=== PATIENT | female | born 1985 | race Caucasian/White ===

== ENCOUNTER 2025-03-02 09:22 | Outpatient (CLI) | payer OTHER, SELFPAY ==
--- NOTE | ~2025-03-02 | MM_ITS ---
EXAMINATION: MM screening manuela BI w bea HISTORY: Screening TECHNIQUE: Craniocaudal and mediolateral oblique 3-D tomosynthesis images were obtained and synthetic 2-D images were generated. CAD analysis was submitted and interpreted. COMPARISON: No prior mammogram is available for comparison at this institution. BREAST PARENCHYMAL COMPOSITION: Dense: The breasts are heterogeneously dense, which may obscure small masses FINDINGS: There are asymmetries in the central aspect of the right breast, middle third. There are be nign bilateral breast calcifications. No evidence for malignancy in the left breast. IMPRESSION: 1. Right breast asymmetries. 2. Recommend routine screening mammography in one year. Reviewed, dictated and finalized at location B.
--- OUTSIDE RECORDS SUMMARY | 2025-03-02 09:32 | XMS_ITS | Clinical Summary ---
Author Organization [facility] Health Address [address] [place] [address] Care Team Providers Care Aromatherapist Name Role Phone Unavailable Primary Care Provider Unavailabl e Social History Tobacco Use Types Packs/Day Years Used Date Smoking Tobacco: Never Assessed Comments Unknown Sex and Gender Information Value Date Recorded Sex Assigned at Not on file Legal Sex Female 1:11 AM PST Gender Identity Not on file Sexual Orientation Not on file Plan of Treatment Not on file
--- OUTSIDE RECORDS SUMMARY | 2025-03-02 09:32 | XMS_ITS | Clinical Summary ---
Author Organization [facility] [employer] Address [address] [place] [address] Care Team Providers Care Wet Process Miller Head Name Role Phone Callie Luke Primary Care Provider Source Comments [facility] [employer],non-owned Affiliates and Associated Physician Practices is amultiple site organization consisting of ambulatory clinics and hospital sitesin [place], [place], [place] and [place]. This disclosure is being madepursuant to the Care Everywhere program and may not contain all information available regarding this patient. Last updated 18.[facility] [employer] Allergies Active Allergy Reactions Criticality Noted Date Comments Sulfa Drugs Urticaria Medium 03/19/2018 Medications * This document contains information received from the source organization and may not represent a complete record from that organization. * Be aware that medications may not be up to date on this document. Alwaysverify current medications with the patient. cetirizine (ZyrTEC) 10 MG tablet Take 1 (one) tablet by mouth once daily 03/29/2023 Active fluticasone propionate (Flonase) 50 MCG/ACT nasal spray SPRAY ONE SPRAY IN EACH NOSTRIL 30 MINUTES BEFORE BED 03/29/2023 Active valACYclovir (Valtrex) 500 MG tabletIndicatio ns:Vulvar fissure Take 2 (two) tablets by mouth once daily 30 tablet 3 01/22/2024 Active Active Problems Problem Noted Date Diagnosed Date Suicidal thoughts 07/18/2022 TOS (thoracic outlet syndrome) 10/18/2019 Pectoralis minor syndrome 05/13/2019 Overview (03/20/2021): Added automatically from request for surgery [id number] Neurogenic thoracic outlet syndrome 05/13/2019 Overview (03/20/2021): Added automatically from request for surgery [id number] ROHAN (generalized anxiety disorder) 12/16/2018 Paresthesia 07/29/2018 Attention deficit hyperactiv ity disorder (ADHD), predominantly inattentive type Resolved Problems Problem Noted Date Diagnosed Date Resolved Date Pain in joint of right shoulder 11/16/2018 07/25/2022 Multiple sclerosis 07/29/2018 Acute maxillary sinusitis, unspecified 11/29/2015 07/25/2022 Carpal tunnel syndrome 12/13/201001/21 Immunizations Immunization Administration Dates Next Due Covid Moderna primary monovalent 12+ yr 0.5mL ,11/23/2020 FLU VACCINE TRI IIV3 SPLIT PF IM (FLUVIRIN) 05/19 INFLUENZA VACCINE, QUADR. (F LUZONE; FLULAVAL; FLUARIX; AFLURIA QUADRIVALENT; 6MO+), 0.5 ML (IIV4) 05/29/2018 MMR 01/30/2017 PNEUMOCOCCAL PPSV23 05/29/2018 TDAP (7yrs+) 07/24/2016 Family History Medical History Relation Name Comments CAD (Coronary Artery Disease) Father Seizures Maternal Grandfather Cancer - Colon Maternal Grandmother Hypertension Mother None Known Paternal Grandfather None Known Paternal Grandmother Relation Name Status Comments Father Alive Maternal Grandfather Maternal Grandmother Mother Alive Paternal Grandfather Paternal Grandmother Social History Tobacco Use Types Packs/Day Years Used Date Smoking Tobacco: Every Day Cigarettes 0.5 21 Smokeless Tobacco: Never Tobacco Cessation:Ready to Q uit: Not Asked; Counseling Given: Not Answered Comments:Vapes during day Alcohol Use Standard Drinks/Week Comments Not Currently 0 (1 standard drink = 0.6 oz pur e alcohol) socially PHQ-2 Answer Date Recorded Patient Health Questionnaire-2 Score 0 01/15/2024 Comments No Sex and Gender Information Value Date Recorded Sex Assigned at Female 11/23/2020 9:50 AM CDT Legal Sex Female 2:43 PM TIMBER MANAGEMENT ASSISTANT Gender Identity Female 11/23/2020 9:50 AM CDT Sexual Orientation Bisexual 09/25/2023 10 :19 AM TIMBER MANAGEMENT ASSISTANT Last Filed Vital Signs Vital Sign Reading Time Taken Comments Blood Pressure 118/80 01/22/2024 10:23 AM CDT Pulse 88 11/13/2022 8:53 AM CDT Temperature 37 C (98.6 F) 11/13/2022 8:53 AM CDT Respiratory Rate 16 07/23/2022 8:42 AM TIMBER MANAGEMENT ASSISTANT Oxygen Saturation 99% 11/13/2022 8:53 AM CDT Inhaled Oxygen Concentration - - Weight 50.3 kg (111 lb) 01/22/2024 10:23 AM CDT Height 165.1 cm (5' 5) 01/22/2024 10:23 AM CDT Body Mass Index 18.47 01/22/2024 10:23 AM CDT Plan of Treatment Health Maintenance Due Date Last Done Comments LIPID TESTING 1985 MAMMOGRAM 1985 HEPATITIS C SCREENING 01/16/2003 HEPATITIS B VACCINE (1 of 3 - 19+ 3-dose series) 01/21/2004 HPV VACCINE (1 - 3-dose SCDM series) 01/21/2012 PNEUMOCOCCAL VACCINE (2 of 2 - PCV) 05/29/2019 05/29/2018 PAP SMEAR 04/18/2023 04/18/2020 (Done Outside Per Patient), 10/30/2016 (Done Outside Per Patient) COVID-19 VACCINE (3 - 2023-2 5 season) 2024 12/20/2020, 11/23/2020 DEPRESSION SCREENING 08/18/2024 01/22/2024, 11/13/2022, 07/23/2022 INFLUENZA VACCINE (#1) 2025 05/29/2018, 2015 DTAP/TDAP/TD VACCINES (2 - T d or Tdap) 07/24/2026 07/24/2016 ZOSTER VACCINE (1 of 2) 2035 HIV SCREENING Completed 07/25/2021, 07/29/2018 HIB VACCINE Aged Out No longer eligi ble based on patient's age to complete this topic MENINGOCOCCAL (Group B) VACCINE SHARED DECISION-MAKING Aged Out No longer eligible based on patient's age to complete this topic MENINGOCOCCAL GROUPS A/C/Y/W VACCINE Aged Out No longer eligible based on patient's age to complete this topic Procedures Procedure Name Priority Date/Time Associated Diagnosis Comments HIV-1 HIV-2 ANTIBODY + HIV P24 AG PANEL Routine 07/25/2021 9:34 AM TIMBER MANAGEMENT ASSISTANT STD exposure from Last 3 Months or Most Recently Relevant to Health Maintenance Results * HIV 1 & HIV 2 ANTIBODY (IN HOUSE) (07/25/2021 9:34 AM TIMBER MANAGEMENT ASSISTANT) HIV1/2 Ab + P24 Ag NON-REACTI VE/NEGATIV E NON-REACTI VE/NEGATIV E 07/25/2021 2:52 PM TIMBER MANAGEMENT ASSISTANT [facility] Blood BLOOD SPECIMEN / Unknown Venipuncture / Unknown 07/25/2021 9:34 AM TIMBER MANAGEMENT ASSISTANT 07/25/2021 9:34 AM TIMBER MANAGEMENT ASSISTANT Callie Luke APRN-KNIFE SHARPENER LAB - CHEMISTRY ORDERAB LES Final Result Performing Organization Address City/State/[facility] [place] Co de Phone Number [facility] [address] from Last 3 Months or Most Recently Relevant to Health Maintenance Insurance CARE Advance Directives * Full Code (Latest Code Status on File) Date Activated Date Inactivated Comments 07/29/2018 4:41 PM 07/31/2018 11:30 AM Care Teams Wet Process Miller Head Relationship Specialty Start Date End Date Callie Luke APRN-CNP PCP - General Nurse Practitioner 07/29/18
--- OUTSIDE RECORDS SUMMARY | 2025-03-02 09:32 | XMS_ITS | Encounter Summary ---
Author Organization [facility] Health Address [address] [place] [address] Care Team Providers Care Tank Systems Maintainer Name Role Phone Unavailable Primary Care Provider Unavailabl e Prior Encounters Date Type Department Care Team Description 09/06/2019 Converted CPS Chart Documents [address] [id number] <No scans attached> 09/06/2019 Converted 13x Documents [facility] [address] [place] [phone] <No scans attached> Plan of Treatment Not on file Procedures Procedure Name Priority Date/Time Associated Diagnosis Comments CANCELLED APPOINTMENT Routine 04/05/2015 2:00 AM CDT PERIODIC ORAL EVALUATION - ESTABLISHED PATIENT Routine 10/06/2014 2:00 AM OUTSIDE PLANT SUPERVISOR ORAL HYGIENE INSTRUCTIONS Routine 2014 2:00 AM OUTSIDE PLANT SUPERVISOR TOPICAL APPLICATION OF FLUORIDE VARNISH Routine 10/06/2014 2:00 AM OUTSIDE PLANT SUPERVISOR PROPHYLAXIS - ADULT Routine 10/06/2014 2 :00 AM OUTSIDE PLANT SUPERVISOR 18 SEALANT 2ND MOLAR Routine 03/18/2014 2:00 AM CDT 15 SEALANT 2ND MOLAR Routine 03/18/2014 2:00 AM CDT 30 SEALANT 1ST MOLAR Routine 03/18/2014 2:00 AM CDT 19 SEALANT 1ST MOLAR Routine 03/18/2014 2:00 AM CDT 14 SEALANT 1ST MOLAR Routine 03/18/2014 2:00 AM CDT 3 SEALANT 1ST MOLAR Routine 03/18/2014 2 :00 AM CDT COMPREHENSIVE ORAL EVALUATION - NEW OR ESTABLISHED PATIENT Routine 03/18/2014 2:00 AM CDT ORAL HYGIENE INSTRUCTIONS Routine 2013 2:00 AM CDT TOPICAL APPLICATION OF FLUORIDE VARNISH Routine 03/18/2014 2:00 AM CDT PROPHYLAXIS - ADULT Routine 03/18/2014 2 :00 AM CDT PANORAMIC RADIOGRAPHIC IMAGE Routine 03/18/2014 2:00 AM CDT INTRAORAL - COMPREHENSIVE SERIES OF RADIOGRAPHIC IMAGES Routine 03/18/2014 2:00 AM CDT INTRAORAL PHOTO Routine 03/18/2014 2:00 AM CDT INTRAORAL PHOTO Routine 03/18/2014 2:00 AM CDT INTRAORAL PHOTO Routine 03/18/2014 2:00 AM CDT INTRAORAL PHOTO Routine 03/18/2014 2:00 AM CDT Visit Diagnoses Not on file
--- OUTSIDE RECORDS SUMMARY | 2025-03-02 09:33 | XMS_ITS | Continuity of Care Document ---
Author Name [facility] Organization DOD-ID Care Team Providers Care Business Intelligence Reporting Analyst Name Role Phone DOD-VA Unavailable Unavailable Problems Combined list of problems from Department of Defense and Veterans Affairs facilities. It does not include entries that were removed or entered in error. Problem Status Onset Date Problem Type Date of Resolution Comme nts Source Acute maxillary sinusitis, unspecified Active 11/29/2015 Condition DoD Other specified counseling Active Condition DoD Encounter for immunization Active Condition DoD Allergies, Adverse Reactions, Alerts Combined list of allergies from Department of Defense and Veterans [facility] facilities. It does not include entries that were removed or entered in error. Substance Category Reaction Severity Reaction type Status Date Reported Comments Source SULFA (SULFONAMIDE ANTIBIOTICS) {Cla } Drug allergy (disorder) Rash active 05/30/2015 [facility] [place] Immunizations Combined list of available immunizations from the Department of Defense and Veterans [facility] facilities. Immunization Series Date Given Administered By Site Reaction Lot Number CVX Code Drug Brattice Builder Status Comments Source measles, mumps and rubella virus vaccine 1 2016 YONIS ROSADO [id number] Merck (MSD) complet ed measles, mumps and rubella virus vaccine DoD tetanus toxoid, reduced diphtheria toxoid, and acellular pertu is vaccine, adsorbed 1 2015 JYOTI BOLANOS [id number] SmithKline (SKB) complet ed tetanus toxoid, reduced diphtheri a toxoid, and acellular pertussis vaccine, adsorbed DoD Influenza, seasonal, injectable, preservative free 0 2015 SHONA TOTH [id number] CSL [employer] (CSL) complet ed Influenza , seasonal, injectabl e, preservat néstor free DoD Encounters Combined list of: 1) Encounters from Department of Veterans Affairs facilities going backup to the last 18 months, not all VA inpatient encounters are included; 2) Encounters from the Department of Defense facilities going backup to 280 months. Location Location Details Encounter Type Encounter Number Reason For Visit Attending Provider ADM Date DC Date Status Disposition Source [address] [place] [address] Anderson DAVIS ([facility] [facility] [place] OUTPATIENT [id number] New pt appt, Medicat ions DANELLE HARRISON 05/26 Released w/o Limitations [address] [place] [address] Anderson [facility]RETE[facility] [place]S cott [facility] [place] [address] [place] [address] Anderson [facility] [place]co [place] [facility] [place] OUTPATIENT [id number] efren otooler unny nose [phone] MARISELA PAYNE 07/19 Released w/o Limitations [address] [place] [address] Anderson [facility] [place]S cott [facility] [place] [address] [place] [address] Anderson [facility] [place]co [place] [facility] [place] TELE CONSULT [id number] Notes Entered by: HANS MAURER 25 Sep 2015 1151 ------- ------- ------- ------- -- PFT'S - [place] - EARLENE OWENS 09/[address] [place] [address] Anderson DAVIS [facility] [place] [facility] [place]) [address] [place] [address] Anderson DAVIS [facility] [place]Sco tt [facility] [place] OUTPATIENT [id number] Pulmona ry Functio n Test GIBSON ALVARADO 10/05 Released w/o Limitations [address] [place] [address] Anderson [facility] [place]S cott [facility] [place]) [address] [place] [address] Anderson [facility] [place]co tt [facility] [place] OUTPATIENT [id number] F/U PFT and asthma medicat ion renewal - [id number] HAMMAD MADDOX LT 11/22 Released w/o Limitations [address] [place] [address] Anderson [facility] [place]S cott [facility] [place]am [place]) [address] [place] [address] Anderson [facility] [place]Sco tt [facility] [place]) TELE CONSULT [id number] Notes Entered by: Jenise MCGUIRE 29 Nov 2015 1422 ------- ------- ------- ------- -- Request s alessandro nt medicat ion/Nehal lton/[phone] HAMMAD MADDOX LT 11/[address] [place] [address])(S [facility] Fam Res [place]) [address] [place] [address])(Sco tt [facility] [place]) OUTPATIENT [id number] Notes Entered by: ALFONSO WRIGHT 05 Feb 2016 1331 ------- ------- ------- ------- -- walk-in ian cy JOSIAH Blunt 02/04 Released w/o Limitations [address] [place] [address])(S [facility] Fam Res [place]m [place]) [address] [place] [address])(Sdo formerly [facility] Fam Res Tm Red) OUTPATIENT [id number] Notes Entered by: RONEN GIBBONS 04 Mar 2016 1051 ------- ------- ------- ------- -- w/i initial OB for VELIA Ruvalcaba 03/04 Released w/o Limitations [address] [place] [address])(S [facility] Fam Res Tm Red) [facility] F_Non-AD) TELE CONSULT [id number] Notes Entered by: JERAMY STEARNS 09 Apr 2016 0939 ------- ------- ------- ------- -- CC/ OB referra l request ed/ CB# .. .MARINA Danielle 04/09 [facility]( Family Med Cl Team F_Non-A D) [facility](Ob /Rim Fire Priming Tool Setter Cl MG) OUTPATIENT [id number] NOB LMP:25 DEC 2015 TAMMY WHITLOCK 04/23 Released w/o Limitations [facility]( Reprographics Technician Cl MG) [facility](Ob /Rim Fire Priming Tool Setter Cl MG) TELE CONSULT [id number] TAMMY IRIZARRY 05/14 [facility]( Reprographics Technician Cl MG) [facility](Ob /Rim Fire Priming Tool Setter Cl MG) TELE CONSULT [id number] TAMMY IRIZARRY 05/30 [facility]( Reprographics Technician Cl MG) [facility](AM H F01S [place] (Fam Prac Silv FB)) OUTPATIENT [id number] ARTURO Love 06/07 Released w/o Limitations [facility]( AMH F01S [place] (Fam Prac Silv FB)) [facility](Co mm Health FB) OUTPATIENT [id number] Notes Entered by: YASMANY MANE 12 Jun 2016 1047 ------- ------- ------- ------- -- FLU SHOT SHONA MURRAY 06/12 Released w/o Limitations [facility]( Comm Health FB) [facility](AM H F01S [place] (Fam Prac Silv FB)) TELE CONSULT [id number] Notes Entered by: LI ALBERTS 16 Jun 2016 0323 ------- ------- ------- ------- -- Results /anatom y scan LA ALBERTS 06/16 Referred for Appointment [facility]( AMH F01S [place] (Fam Prac Silv FB)) [facility](Ph ys Therapy FB) OUTPATIENT [id number] both feet JAMES LUNA 06/20 Released w/o Limitations [facility]( Phys Therapy FB) [facility](Ph ys Therapy FB) OUTPATIENT [id number] SLAVA RUFF 06/21 Released w/o Limitations [facility]( Phys Therapy FB) [facility](Or thotics Clinic FB) OUTPATIENT [id number] brace shop splint BRAYAN MADSEN 06/21 Released w/o Limitations [facility]( Orthoti cs Clinic FB) [facility](Ph ys Therapy FB) OUTPATIENT [id number] CLIF QUIÑONES JR 06/27 Released w/o Limitations [facility]( Phys Therapy FB) [facility] Med BE) OUTPATIENT [id number] 25wk f/u echogen ic focus ARTHUR CALI 07/02 Released w/o Limitations [facility]( Materna l Med BE) [facility](Ph ys Therapy FB) OUTPATIENT [id number] DINHJUDIE SHELBYN 07/05 Released w/o Limitations [facility]( Phys Therapy FB) [facility](Ph ys Therapy FB) OUTPATIENT [id number] SLAVA RUFF 07/10 Released w/o Limitations [facility]( Phys Therapy FB) [facility](AM H F01S [place] (Fam Prac Silv FB)) OUTPATIENT [id number] 28wk SHERLY ARECHIGA 07/18 Released w/o Limitations [facility]( AMH F01S [place] (Fam Prac Silv FB)) [facility](Or thotics Clinic FB) OUTPATIENT [id number] night splint dorsal x1 BRAYAN MADSEN 07/19 Released w/o Limitations [facility]( Orthoti cs Clinic FB) [facility](Ph ys Therapy FB) OUTPATIENT [id number] JAMES LUNA 07/19 Released w/o Limitations [facility]( Phys Therapy FB) [facility](Al lergy Cl FB) OUTPATIENT [id number] Notes Entered by: LINDA MILLAN 24 Jul 2016 0957 ------- ------- ------- ------- -- JYOTI Aguilar 07/24 Released w/o Limitations [facility]( Allergy Cl FB) [facility](Ph ys Therapy FB) OUTPATIENT [id number] VELIA Jean 08/02 Released w/o Limitations [facility]( Phys Therapy FB) [facility](AM H F01S [place] (Fam Prac Silv FB)) OUTPATIENT [id number] 32 wk JOEL SANCHEZ 08/06 Released w/o Limitations [facility]( AMH F01S [place] (Fam Prac Silv FB)) [facility](Ph ys Therapy FB) OUTPATIENT [id number] JAMES LUNA 08/26 Released w/o Limitations [facility]( Phys Therapy FB) [facility](AM H F01S [place] (Fam Prac Silv FB)) OUTPATIENT [id number] 36wk LA DILLON S 09/03 Released w/o Limitations [facility]( AMH F01S [place] (Fam Prac Silv FB)) [facility](Ob stetric Cl FB) OUTPATIENT [id number] 36 wk class MARGARET CATES 09/11 Released w/o Limitations [facility]( Obstetr ic Cl FB) [facility](AM H F01S [place] (Fam Prac Silv FB)) OUTPATIENT [id number] LA DILLON 09/17 Released w/o Limitations [facility]( AMH F01S [place] (Fam Prac Silv FB)) [facility](AM H F01S [place] (Fam Prac Silv FB)) OUTPATIENT [id number] 39wk LA DILLON S 09/24 Released w/o Limitations [facility]( AMH F01S [place] (Fam Prac Silv FB)) [facility](Fa m Practice FB) OUTPATIENT [id number] Notes Entered by: DENITA BOWIE 25 Sep 2016 1305 ------- ------- ------- ------- -- BP check ROCHELLE WILLS 09/25 Released w/o Limitations [facility]( Fam Practic e FB) [facility] DIRECT TO [facility] FROM OTHER THAN ER OR [facility] [id number] MILLIE WEBSTER TITI 09/28 DISCHARGED HOME [facility](Pr enatal Obs FB) TELE CONSULT [id number] Notes Entered by: SKY PRYOR 28 Sep 2016 191 ------- ------- ------- ------- -- labor GRAZYNA PRYOR 09/29 [facility]( Prenata l Obs FB) [facility](Fa m Prac Extended Care Cl FB) OUTPATIENT [id number] IUD inserti on w/Pap STORM GAMBINO 12/23 Released w/o Limitations [facility]( Fam Prac Extende d Care Cl FB) [facility](AM H F01G [place] (Fam Pra Green FB)) TELE CONSULT [id number] Notes Entered by: OSCAR GLASER 23 Jan 2017 1548 ------- ------- ------- ------- -- PAP results OSCAR GLASER 01/23 Referred for Appointment [facility]( AMH F01G [place] (Fam Pra Green FB)) [facility](Al lergy Cl FB) OUTPATIENT [id number] mmr YONIS PATTEN 01/30 Released w/o Limitations [facility]( Allergy Cl FB) [facility](AM H F01S [place] (Fam Prac Silv FB)) TELE CONSULT [id number] Notes Entered by: LI ALBERTS 24 Mar 2017 1748 ------- ------- ------- ------- -- Refill asthma meds LA ALBERTS 03/24 Referred for Appointment [facility]( AMH F01S [place] (Fam Prac Silv FB)) [facility](AM H F01S [place] (Fam Prac Silv FB)) TELE CONSULT [id number] Notes Entered by: LI ALBERTS 05 Jun 2017 1254 ------- ------- ------- ------- -- Switch SSRI LA ALBERTS 06/05 Referred for Appointment [facility]( AMH F01S [place] (Fam Prac Silv FB)) [facility](AM H F01S [place] (Fam Prac Silv FB)) OUTPATIENT [id number] medicat ion LA ALBERTS 07/08 Released w/o Limitations [facility]( AMH F01S [place] (Fam Prac Silv FB)) [facility](AM H F01S [place] (Fam Prac Silv FB)) TELE CONSULT [id number] LA ALBERTS 10/07 Released to Self Care [facility]( AMH F01S [place] (Fam Prac Silv FB)) [facility](AM H F01S [place] (Fam Prac Silv FB)) OUTPATIENT [id number] Sinus SHAHLA Hansen 11/21 Released w/o Limitations [facility]( AMH F01S [place] (Fam Prac Silv FB)) Procedures Combined list of: 1) Procedures from Department of Veterans Affairs facilities going back up to thelast 18 months, not all VA non-surgical procedures are included; 2) All procedures from the Department of Defense facilities. Procedure Procedure Type Code Date Perfomer Comments Sourc e Vaccines Viral Measles, Mumps and Rubella, Live Vaccines Viral Measles, Mumps and Rubella, Live 92681 7 YONIS ROSADO MMR; Series #: 1; .5 mL; SC; Left Arm; Mfg: Merck; Lot: [id number]; VIS given (Monisha: 12/06/11). DoD Immunization Administration One Vaccine Immunization Administration One Vaccine 58012 7 YONIS ROSADO [facility] Non-Physician Phone Call To Patient/Provider Brief (5-10min) Non-Physician Phone Call To Patient/Provider Brief (5-10min) 49973 7 OSCAR GLASER [facility] Gynecologic Services Intrauterine Device (IUD) Insertion Gynecologic Services Intrauterine Device (IUD) Insertion 14713 7 STORM GAMBINO [facility] Cervical Pap Smear Cervical Pap Smear 17006 7 STORM GAMBINO [facility] Physical Medicine Physical Therapy Re-Evaluation Physical Medicine Physical Therapy Re-Evaluation 68934 7 JAMES LUNA [facility] OB Services Antepartum Care Only Subsequent Single Visit OB Services Antepartum Care Only Subsequent Single Visit 0502F 6 JOEL WANG [facility] Physical Therapy: ___ Se ion Segments, 15 Minutes Each Physical Therapy: ___ Session Segments, 15 Minutes Each 86066 6 VELIA DANIEL [facility] Osteopathic Manip Treatment (OMT) 1-2 Body Regions Involved Osteopathic Manip Treatment (OMT) 1-2 Body Regions Involved 50155 6 VELIA DANIEL [facility] Physical Medicine Physical Therapy Re-Evaluation Physical Medicine Physical Therapy Re-Evaluation 92589 6 VELIA DANIEL [facility] Tdap Vaccine Tdap Vaccine 58627 6 JYOTI BOLANOS Tdap; Series #: 1; .5 mL; IM; Right Arm; Mfg: [employer]; Lot: [id number]; VIS given (Monisha: 10/11/14). DoD Immunization Administration One Vaccine Immunization Administration One Vaccine 46458 6 JYOTI BOLANOS [facility] Physical Medicine Physical Therapy Re-Evaluation Physical Medicine Physical Therapy Re-Evaluation 89577 6 JAMES LUNA [facility] Static or dynamic ankle foot orthosis, including soft interface material, adjustable for fit, for positioning, may be used for minimal ambulation, prefabricated item that has been trimmed, bent, molded, a embled, or otherwise customized to fit a specific patient by an individual with expertise 6 BRAYAN MADSEN [facility] Physical Therapy Education Orthotics Training Initial 15 Min 6 BRAYAN MADSEN [facility] Mobilization Soft Ti ue Mobilization Soft Tissue 48302 6 SLAVA RUFF 30 min [facility] Mobilization Soft Ti ue Mobilization Soft Tissue 16044 6 BUD TAO 10 min [facility] Transabd Ultrasound W/ Exam Single Or First Gestation Transabd Ultrasound W/ Exam Single Or First Gestation 25635 6 ARTHUR CALI [facility] Physical Therapy: ___ Se ion Segments, 15 Minutes Each Physical Therapy: ___ Session Segments, 15 Minutes Each 36804 6 CLIF QUIÑONES JR 15 min DoD Mobilization Soft Ti ue Mobilization Soft Tissue 13339 6 CLIF QUIÑONES JR 10 min DoD Mobilization Soft Ti ue Mobilization Soft Tissue 51147 6 SLAVA RUFF 20 MIN [facility] Physical Medicine - Group Physical Therapy Se ion Physical Medicine - Group Physical Therapy Session 41319 6 SLAVA RUFF GROUP OF 2 [facility] Physical Therapy: ___ Se ion Segments, 15 Minutes Each Physical Therapy: ___ Session Segments, 15 Minutes Each 41854 6 SLAVA RUFF 20 MIN [facility] Foot, plastic, silicone or equal, heel stabilizer, prefabricated, gvn-[id number]-yknvm, each 6 BRAYAN MADSEN [facility] Physical Therapy Education Orthotics Training Initial 15 Min 6 BRAYAN MADSEN [facility] Osteopathic Manip Treatment (OMT) 1-2 Body Regions Involved Osteopathic Manip Treatment (OMT) 1-2 Body Regions Involved 76157 6 JAMES LUNA [facility] Physical Medicine Physical Therapy Evaluation Physical Medicine Physical Therapy Evaluation 62405 6 JAMES LUNA [facility] Influenza Split Virus Vacc Age 3+ Years IM Preservative Free 6 MILLIE MANE [facility] Immunization Administration One Vaccine Immunization Administration One Vaccine 40799 6 MILLIE MANE [facility] OB Services Antepartum Care Only First Visit, With Report OB Services Antepartum Care Only First Visit, With Report 0500F 6 CASSIE THOMAS [facility] OB Services Antepartum Care Only First Visit, With Report OB Services Antepartum Care Only First Visit, With Report 0500F 6 VELIA QUACH [facility] Social History Combined list of available smoking, tobacco, and other social history from Department of Defense and Veterans Affairs facilities. Social History Type Response Date Comment Sour e This section is an empty social history section. DoD
--- OUTSIDE RECORDS SUMMARY | 2025-03-02 09:33 | XMS_ITS | Referral Summary ---
Author Organization [facility] Address [address] [place] [address] Care Team Providers Care Line Haul Truck Driver Name Role Phone Elpidio Mccall DPT Unavailable [phone] Terrance Lomeli MD Primary Care Provider [phone] Yoanna Reed PhD Unavailable [phone] Allergies Active Allergy Reactions Criticality Noted Date Comments Sulfa (Sulfonamide Antibiotics) Hives,Other (See comments),Urticaria Medium 02/13/2016 Hives Medications albuterol HFA (PROVENTIL HFA,VENTOLIN HFA,PROAIR HFA) 90 mcg/actuation inhalerIndications :Bronchospasm Prevention Inhale 2 puffs every 6 hours as needed for shortness of breath 8 Active drospirenone-ethin yl estradiol (VIK,GIANVI) 3-0.02 mg per tabletIndications: Contraception Take 1 tablet by mouth every morning 9 Active cannabidiol, CBD, (EPIDIOLEX) 100 mg/mL solutionIndication s:Neuropathic Pain as needed CBD oil topically as needed for pain Active Active Problems Problem Noted Date Diagnosed Date Attention deficit hyperactiv ity disorder (ADHD), predominantly inattentive type 03/18/2023 TOS (thoracic outlet syndrome) 05/13/2019 Overview (03/18/2023): Added automatically from request for surgery [id number] Pectoralis minor syndrome 05/13/2019 Overview (05/13/2019): Added automatically from request for surgery [id number] ROHAN (generalized anxiety disorder) 12/16/2018 Paresthesia 07/29/2018 Carpal tunnel syndrome 12/13/2010 Immunizations Immunization Administration Dates Next Due Influenza, Quadrivalent, Spl it, Preservative Free, Intramuscular 06/16/2019(Deferred: Patient Refused - patient no longer wants the flu shot during this admission),05/29/2018 Influenza, Trivalent, Preser vative Free, Intramuscular 06/12/2016 MMR 01/30/2017 Pneumococcal Polysaccharide PPV23 05/29/2018 Tdap 07/24/2016 Social History Tobacco Use Types Packs/Day Years Used Date Smoking Tobacco: Every Day Cigarettes 0.5 17.9 Started: 2000; Last attempted to quit: 07/2018 Smokeless Tobacco: Former Tobacco Cessation:Ready to Q uit: Not Asked; Counseling Given: Not Answered Alcohol Use Standard Drinks/Week Comments Yes 0 (1 standard drink = 0.6 oz pur e alcohol) holidays and special occasions AUDIT-C Answer Date Recorded Frequency of Alcohol Consumption Not on file 03/18/2023 Q2: How many drinks containi ng alcohol do you have on a typical day when you are drinking? 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 on file Not on file Last Filed Vital Signs Vital Sign Reading Time Taken Comments Blood Pressure 120/68 03/18/2023 4:15 PM CDT Pulse 108 03/18/2023 4:15 PM CDT Temperature 36.7 C (98.1 F) 06/17/2019 8:04 AM CDT Respiratory Rate 18 03/18/2023 4:15 PM CDT Oxygen Saturation 97% 03/18/2023 4:15 PM CDT Inhaled Oxygen Concentration - - Weight 43.6 kg (96 lb 2 oz) 03/18/2023 4:15 PM C DT Height 160 cm (5' 3) 03/18/2023 4:15 PM CDT Body Mass Index 17.03 03/18/2023 4:15 PM CDT Plan of Treatment Not on file Medical Devices Implanted Type Area Precision [employer] Device Identifier Shelf Expiration Date Model / Serial / Lot [employer] [id number] Surgiwrap [id number] Bioresorbable Sheet Abdomen Pelvis - S0 - [id number] Implanted:Qty: 1 on 06/14/2019 by David Tarango MD at [facility] Right: Chest [employer] [id number] 03/17/2022 [id number] / 0 / [id number] Description:surgiwrap Procedures Procedure Name Priority Date/Time Associated Diagnosis Comments THINPREP PAP Routine 12/08/2014 3:00 PM CDT from Last 3 Months or Most Recently Relevant to Health Maintenance Results * ThinPrep Pap (12/08/2014 3:00 PM CDT) Thin Prep Pap Smear SEE BELOW () 12/13 4:34 PM CDT [facility] HISTORICAL RESULTS Comment: Associate Programmer ThinPrep Cytology Final Report ThinPrep Pap Specimen Source Cervix/Endocervix Specimen Adequacy Satisfactory for interpretation, endocervical cells (transformation zone) present. Interpretation Negative for intraepithelial lesion or malignancy. 12/13/14 Air Quality Consultant: FERMÍN Patterson(ASCP) 12/13/14 Verified By: FERMÍN Patterson(ASCP) electronic signature [facility], Department of Pathology For questions regarding this case, call ext. [phone] CPT Code(s) 63465 Clinical History LMP: [id number] : N : N IUD: N Hormone Therapy: N Postmenopausal: N Previous surgery date and type: N Hysterectomy: N Chemotherapy: N TICO Exposure: N Radiation: N Previous Abnormal Pap? Details: N Diagnostic or Screening Pap Test: Screening Performed by [facility], [address] [place] [id number] [email or web address], Ganesh Govea MD - Lab. Director 12/08/2014 3:00 PM CDT 12/09/2014 12:51 PM CDT us Olga Siu MD LAB PATHOLOGY ORDERABLES Final Result [facility] HISTORICAL RESULTS from Last 3 Months or Most Recently Relevant to Health Maintenance Insurance [facility] [place] [address] [facility] CHOICE PLUS Advance Directives For more information, please contact: [phone] Documents on File Type Date Recorded Patient Internal Carver Expl anation ADVANCE DIRECTIVE 09/03/2013 12:00 AM MARLIN CHLOÉ WILL ADVANCE DIRECTIVE 09/03/2013 12:00 AM SUSHANT Piedra OF PLANNING AND ANALYSIS MANAGER FINANCIAL/MEDICAL * Full Code (Latest Code Status on File) Date Activated Date Inactivated Comments 06/14/2019 4:41 PM 06/17/2019 3:04 PM Care Teams Line Haul Truck Driver Relationship Specialty Start Date End Date Terrance Lomeli MD [address] [facility] [address] [place] [address] PCP - General Internal Medicine 03/18/23 Elpidio Mccall DPT [address] [facility] [address] [place] [address] Physical Therapist Physical Therapy 07/21/19 Yoanna Reed, PhD [address] [facility] [address] [place] [id number] Referring Physician Obstetrics and Gynecology 03/18/23
--- OUTSIDE RECORDS SUMMARY | 2025-03-02 09:33 | XMS_ITS | Clinical Summary ---
Author Organization [facility] Address [address] [place] [address] Care Team Providers Care Paper Rewinder Name Role Phone Elpidio Mccall DPT Unavailable [phone] Terrance Lomeli MD Primary Care Provider [phone] Yoanna Reed PhD Unavailable [phone] Allergies Active Allergy Reactions Criticality Noted Date [...] (03/18/2023): Added automatically from request for surgery [id number] Pectoralis minor syndrome 05/13/2019 Overview (05/13/2019): Added automatically from request for surgery [id number] ROHAN (generalized anxiety disorder) 12/16/2018 Paresthesia 07/29/2018 Carpal tunnel syndrome 12/13/2010 Immunizations Immunization Administration Dates Next Due Influenza, Quadrivalent, Spl it, Preservative Free, Intramuscular 06/16/2019(Deferred: Patient Refused - patient no longer wants the flu shot during this admission),05/29/2018 Influenza, Trivalent, Preser vative Free, Intramuscular 06/12/2016 MMR 01/30/2017 Pneumococcal Polysaccharide PPV23 05/29/2018 Tdap 07/24/2016 Surgical History Surgery Date Site/Laterality Comments CARPAL TUNNEL RELEASE 08/18/2009 - 08/17/2010 Bilateral 2 separate surgeries couple months apart, left first then right SECTION 09/18/2016 - 10/15/2016 OSTEOTOMY METACARPAL / FINGER 08/18/2011 - 08/17/2012 Left left thumb extension osteotomy OSTEOTOMY METACARPAL / FINGER 08/18/2013 - 08/17/2014 Right right thumb extension osteotomy WISDOM TOOTH EXTRACTION 03/18/2005 - 04/17/2005 Bilateral Medical History Medical History Date Comments Paredes's palsy Thoracic outlet syndrome Anxiety PTSD (post-traumatic stress disorder) MDD (major depressive disorder) Family History Medical History Relation Name Comments Coronary artery disease Father Heart disease Father Dementia Maternal Grandfather Diabetes Maternal Grandfather Stroke Maternal Grandfather Colon cancer Maternal Grandmother Depression Maternal Grandmother Diabetes Maternal Grandmother Hyperlipidemia Maternal Grandmother Schizophrenia Maternal Grandmother Anesthesia problems Mother PONV Anxiety disorder Mother Depression Mother Hyperlipidemia Mother Hypertension Mother Bladder Cancer Other Pancreatic cancer Other Relation Name Status Comments Father Alive Maternal Grandfather Maternal Grandmother Mother Alive Other Social History Tobacco Use Types Packs/Day Years [...] on file Legal Sex Female 9:24 AM 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 [employer]ELD [employer]PER[employer] Gender Identity Female 12/10/2023 2:51 PM CDT Sexual Orientation Something else 12/10/2023 2: 51 PM CDT 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 on file Not on file Obstetrics History Last Filed Vital Signs Vital Sign Reading [...] 03/18/2023 4:15 PM CDT Plan of Treatment Health Maintenance Due Date Last Done Comments Breast Cancer Screening-Mammogram 1985 Hepatitis C Screening 1985 Varicella Vaccines (1 of 2 - 13+ 2-dose series) 1998 Hepatitis B Screening 2003 Regular Well Visit/Exam 18-64 2003 Cervical Cancer Screening 12/09/2015 12/08/2014 Pneumococcal vaccine <65 (2 of 2 - PCV) 05/29/2019 05/29/2018 Depression Screening 03/18/2024 03/18/2023, 03/18/2023 Covid-19 Vaccine (3 - 2023-2 5 season) 2024 12/20/2020, 11/23/2020 Influenza Vaccine (#1) 2025 8, 06/12/2016 DTaP/Tdap/Td Vaccine (2 - Td or Tdap) 07/24/2026 07/24/2016 HPV Vaccines Aged Out No longer eligi ble based on patient's age to complete this topic Medical Devices Implanted Type Area Mohs Surgeon/General Dermatologist Device Identifier Shelf Expiration Date Model / Serial / Lot [employer] 08173-75 Surgiwrap [id number] Bioresorbable Sheet Abdomen Pelvis - S0 - [id number] Implanted:Qty: 1 on 06/14/2019 by David Tarango MD at [facility] Right: Chest [employer] [id number] 03/17/2022 89819-17 / 0 / [id number] Description:surgiwrap Procedures Procedure Name Priority Date/Time Associated Diagnosis Comments THINPREP PAP Routine 12/08/2014 3:00 PM CDT from Last 3 Months or Most Recently Relevant to Health Maintenance Results * ThinPrep Pap (12/08/2014 3:00 PM CDT) Thin Prep Pap Smear SEE BELOW () 12/13 4:34 PM CDT [facility] HISTORICAL RESULTS Comment: Heel Sander Rubber ThinPrep Cytology Final Report ThinPrep Pap Specimen Source Cervix/Endocervix Specimen Adequacy Satisfactory for interpretation, endocervical cells (transformation zone) present. Interpretation Negative for intraepithelial lesion or malignancy. 12/13/14 Cooking Casing And Drying Supervisor: FERMÍN Patterson(ASCP) 12/13/14 Verified By: FERMÍN Patterson(ASCP) electronic signature [facility], Department of Pathology For questions regarding this case, call ext. [phone] CPT Code(s) 57578 Clinical History LMP: [id number] : N : N IUD: N Hormone Therapy: N Postmenopausal: N Previous surgery date and type: N Hysterectomy: N Chemotherapy: N TICO Exposure: N Radiation: N Previous Abnormal Pap? Details: N Diagnostic or Screening Pap Test: Screening Performed by [facility], [address] [place] [id number] [email or web address], Ganesh Govea MD - Lab. Director 12/08/2014 3:00 PM CDT 12/09/2014 12:51 PM CDT Olga Siu MD LAB PATHOLOGY ORDERABLES Final Result Performing Organization Address City/State/ZIP [place] Phone Number [facility] HISTORICAL RESULTS from Last 3 Months or Most Recently Relevant to Health Maintenance Insurance [facility] CHOICE PLUS [facility] HMO/PPO Address: [facility] [address] [place] [address] Advance Directives For more information, please contact: [phone] Documents on File Type Date Recorded Patient Chain Puller Expl anation ADVANCE DIRECTIVE 09/03/2013 12:00 AM MARLIN CHLOÉ WILL ADVANCE DIRECTIVE 09/03/2013 12:00 AM SUSHANT R OF [employer] BI DEVELOPER FINANCIAL/MEDICAL * Full Code (Latest Code Status on File) Date Activated Date Inactivated Comments 06/14/2019 4:41 PM 06/17/2019 3:04 PM Care Teams Paper Rewinder Relationship Specialty Start Date End Date Terrance Lomeli MD [address] [facility] [address] [place] [address] PCP - General Internal Medicine 03/18/23 Elpidio Mccall DPT [address] [facility] [address] [place] [address] Physical Therapist Physical Therapy 07/21/19 Yoanna Reed, PhD [address] [place] [address] Referring Physician Obstetrics and Gynecology 03/18/23
--- OUTSIDE RECORDS SUMMARY | 2025-03-02 09:33 | XMS_ITS | Encounter Summary ---
Author Organization [facility] Address [address] [facility] [address] [place] [address] Phone Care Team Providers Care Manager Compensation Name Role Phone Callie Luke NP Primary Care Provider [phone] Elpidio Mccall DPT Unavailable [phone] Terrance Lomeli MD Primary Care Provider [phone] Yoanna Reed PhD Unavailable [phone] Encounter Details Date Type Department Care Team (Late st Contact Info) Description 04/07/2019 Imaging Exam [facility] Surgery [address] [place] [id number] David Tarango MD [address] [facility] [address] [place] [address] Social History Tobacco Use Types Packs/Day Years Used Date Smoking Tobacco: Former Smokeless Tobacco: Never Comments:Vape Alcohol Use Standard Drinks/Week Comments Yes 0 (1 standard drink = 0.6 oz pur e alcohol) 2/wk Comments Unknown Sex and Gender Information Value Date Recorded Sex Assigned at Not on file Legal Sex Female 9:24 AM MARKETING SPECIALIST Gender Identity Female 12/10/2023 2:51 PM CDT Sexual Orientation Something else 12/10/2023 2: 51 PM CDT 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 on file Not on file documented as of this encounter Plan of Treatment Not on file documented as of this encounter Visit Diagnoses Not on filedocumented in this encounter Care Teams Manager Compensation Relationship Specialty Start Date End Date Callie Luke NP PCP - General Bdc Manager 11/02/18 03/17/23 Terrance Lomeli MD [address] [facility] [address] [address] PCP - General Internal Medicine 03/18/23 Elpidio Mccall DPT [address] [facility] [address] [id number] Physical Therapist Physical Therapy 07/21/19 Yoanna Reed, PhD [address] [facility] [address] [place] [address] Referring Physician Obstetrics and Gynecology 03/18/23 documented as of this encounter
== END 2025-03-02 09:23 | disposition home or self-care (01) ==
PROVIDERS: PCP Nurse Practitioner; Visit Provider Obstetrics & Gynecology
DX: Z12.31 Encounter for screening mammogram for malignant neoplasm of breast (principal); N64.89 Other specified disorders of breast
CPT/HCPCS: 77063; 77067